=== PATIENT | male | born 1980 | race Two or more races ===

== ENCOUNTER 2016-12-21 12:50 | Emergency (ER) | payer SELFPAY ==
[~2016-12-21] VITALS: Ht 175.3 cm; Wt 74.8 kg
[2016-12-21 14:16] VITALS: BP 114/68
[2016-12-21] MEDS ORDERED: KETOROLAC TROMETH 60MG/2ML VIAL IM ONE (14:30)
== END 2016-12-21 16:28 | disposition home or self-care (01) ==
LOC: ER 12:51
DX: S92.241A Displaced fracture of medial cuneiform of right foot, initial encounter for closed fracture (principal); V43.52XA Car driver injured in collision with other type car in traffic accident, initial encounter; Y93.89 Activity, other specified; Y92.89 Other specified places as the place of occurrence of the external cause; Y99.8 Other external cause status
CPT/HCPCS: 29515; 73630; 73700; 96372; 99284; J1885